=== PATIENT | female | born 1995 | race Caucasian/White ===

== ENCOUNTER 2019-11-14 21:44 | Emergency (ER) | payer OTHER, SELFPAY ==
--- NOTE | 2019-11-14 21:27 | ECG_ITS ---
APPROVED REPORT Exam: Resting ECG HR:58 bpm ECG Measurements Heart Rate 58 AXES HI 152 P 15 QRSd 112 QRS 63 QT 430 T 18 QTc 422 <Conclusion> Sinus bradycardia with marked sinus arrhythmia Abnormal ECG Electronically signed by : Hadley Marx, 11/16/2019 18:01:26
[2019-11-14 21:42] VITALS: BP 101/51; PULSE 61; RESP 18; TEMP 36.7; O2SAT 99
[2019-11-14 21:43] VITALS: BP 101/51; PULSE 61; RESP 18; TEMP 36.7; O2SAT 99; BMI 38.2
--- NOTE | 2019-11-14 21:45 | ECG_ITS ---
APPROVED REPORT Exam: Resting ECG HR:121 bpm ECG Measurements Heart Rate 121 AXES QRSd 80 QRS 56 QT 310 T -22 QTc 440 <Conclusion> Poor data quality, interpretation may be adversely affected Sinus tachycardia-motion artifact RSR' or QR pattern in V1 suggests right ventricular conduction delay ST & T wave abnormality, consider inferior ischemia Abnormal ECG Electronically signed by : Hadley Marx, 11/16/2019 18:00:03
--- NOTE | 2019-11-14 21:50 | CT_ITS ---
PROCEDURE: CT ABDOMEN PELVIS W CON CLINICAL INDICATION: nausea/vomiting abruptly Nausea and vomiting COMPARISON: No exams were available for comparison TECHNIQUE: IV Contrast: 75ML OPTIRAY 350 Oral Contrast none Axial images obtained with sagittal and coronal reformats. All CT scans at the facility use one or more dose reduction, viz: automated exposure control, ma/kV adjustment per patient size (including targeted exams where dose is matched to indication, i.e. head), or iterative reconstruction technique. FINDINGS: LOWER THORAX: Mild atelectatic changes in the lung bases. Partially calcified nodules present in the left lower lobe medially ABDOMEN & PELVIS: The liver, gallbladder, spleen, adrenal glands, pancreas, and kidneys have an unremarkable appearance. No intestinal obstruction or free air. No evidence of appendicitis or diverticulitis. There is a small amount of fluid in the cul-de-sac. There is an exophytic soft tissue mass projecting off the anterior and right aspect of the lower uterine segment consistent with a fibroid measuring 3 cm. IMPRESSION: 1. No acute finding. 2. Uterine fibroid. Ultrasound Dictated by: Reg Mead MD 11/15/2019 09:04 Electronically signed by Reg Mead MD in [place] 11/15/2019 09:04
[2019-11-14 22:00] VITALS: BP 116/70; BP 119/73; BP 130/85; PULSE 57; PULSE 73; PULSE 74
[2019-11-14 22:00] LABS: Basophils # 0.1 K/mm3 (0-0.2); Basophils % 0.9 % (0.1-2.0); Eosinophils # 0.2 K/mm3 (0.0-0.4); Eosinophils % 3.3 % (0.1-12.0); Hematocrit 42.2 % (37.0-47.0); Hemoglobin 13.2 g/dL (12.2-16.2); Lymphocytes # 1.9 K/mm3 (0.7-4.5); Lymphocytes % 29.4 % (10-50); Mean Corpuscular HGB Conc 31.4 g/dL (31.8-35.4); Mean Corpuscular Volume 82.8 fl (81-99); Mean Platelet Volume 8.1 fl (7.4-10.4); Monocytes # 0.3 K/mm3 (0.1-1.0); Monocytes % 4.3 % (1.7-9.3); Neutrophils # 3.9 K/mm3 (1.8-7.8); Neutrophils % 62.1 % (37.0-80.0); Platelet Count 380 K/mm3 (142-424); Red Cell Distribution Width 14.4 % (11.5-17.5); White Blood Count 6.4 K/mm3 (4.8-10.8)
[2019-11-14 22:02] LABS: Chloride 103 mmol/L (98-107)
[2019-11-14 22:03] LABS: Potassium 3.8 mmoL/L (3.5-5.1); Sodium 139 mmol/L (136-145)
[2019-11-14 22:05] LABS: Alanine Aminotransferase 23 U/L (12-78); Amylase 90 U/L (30-110); Aspartate Amino Transferase 29 U/L (14-36); Blood Urea Nitrogen 16 mg/dl (7-17); Creatinine Clearance Estimated 166 mL/min (50-200); Estimated Glomerular Filt Rate 87 ml/min (>60); GFR (African American) 106 ML/MIN (>60)
[2019-11-14 22:06] LABS: Albumin Level 4.3 g/dl (3.5-5.0); Albumin/Globulin Ratio 1.4 (1.1-1.8); Alkaline Phosphatase 86 U/L (38-126); Anion Gap 13.8 mEq/L (5-15); Bilirubin,Total 0.3 mg/dl (0.2-1.3); Calcium 9.5 mg/dl (8.4-10.2); Carbon Dioxide 26 mmol/L (22.0-30.0); Globulin 3.1 g/dL (1.3-3.2); Glucose 108 mg/dl (74-100); Lipase 103 U/L (23-300); Total Protein,Serum 7.4 g/dl (6.3-8.2)
[2019-11-14 22:30] VITALS: BP 119/84; PULSE 64; RESP 18; O2SAT 98
[2019-11-14 22:45] LABS: HCG Qualitative, Serum Negative (Negative)
[2019-11-14 23:00] VITALS: BP 132/84; PULSE 59; RESP 18; O2SAT 98
--- NOTE | 2019-11-14 23:27 | PC.NURSE ---
with pt consent this nurse updated the pts father on pts condition and that we were just waiting on the CT results.
--- NOTE | 2019-11-14 23:52 | PC.NURSE ---
pt up to bathroom with minimal assist x2. urine specimen obtained
--- NOTE | 2019-11-14 23:55 | HMH.EDNVD ---
ED Disposition Clinical Impression: Abdominal pain Qualifiers: Abdominal location: epigastric Qualified Code(s): R10.13 - Epigastric pain Disposition: Home, Self-Care Condition on Discharge: Good Instructions: DI for Nausea -- Adult Additional Instructions: call pcp for follow up Referrals: Provider,Referral, [Primary Care Provider] - - Critical Care Critical Care Time: No Attestation: On 11/14/19, the high probability of a clinically significant, sudden or life threatening deterioration of the following system(s) required my full and direct attention, intervention and personal management. The time I documented below is in addition to time spent performing reported procedures but includes the following listed in this critical care notation. Medical Decision Making - Medical Records Medical records reviewed: Yes: I reviewed the patient's medical records. - Sb Inquiry Pt receiving controlled substance: No Vital Signs: 11/14/19 21:42 11/14/19 21:43 11/14/19 22:00 Temperature 98.1 F 98.1 F Temperature Source Oral Oral Pulse Rate [Orthostatic Lying Right Radial] 57 L Pulse Rate [Orthostatic Sitting Right Radial] 74 Pulse Rate [Orthostatic Standing Right Radial] 73 Pulse Rate [Right Brachial] 61 61 Respiratory Rate 18 18 Blood Pressure [Orthostatic Lying Right Arm] 130/85 Blood Pressure [Orthostatic Sitting Right Arm] 119/73 Blood Pressure [Orthostatic Standing Right Arm] 116/70 Blood Pressure [Right Arm] 101/51 L 101/51 L Blood Pressure Mean [Right Arm] 67 67 Blood Pressure Source [Right Arm] Automatic Cuff Automatic Cuff Blood Pressure Position [Right Arm] Supine Sitting 02 Sat by Pulse Oximetry 99 99 Oxygen Delivery Method Room Air Room Air 11/14/19 22:30 11/14/19 23:00 Temperature Temperature Source Pulse Rate [Orthostatic Lying Right Radial] Pulse Rate [Orthostatic Sitting Right Radial] Pulse Rate [Orthostatic Standing Right Radial] Pulse Rate [Right Brachial] 64 59 L Respiratory Rate 18 18 Blood Pressure [Orthostatic Lying Right Arm] Blood Pressure [Orthostatic Sitting Right Arm] Blood Pressure [Orthostatic Standing Right Arm] Blood Pressure [Right Arm] 119/84 132/84 Blood Pressure Mean [Right Arm] 95 100 Blood Pressure Source [Right Arm] Automatic Cuff Automatic Cuff Blood Pressure Position [Right Arm] Supine Supine 02 Sat by Pulse Oximetry 98 98 Oxygen Delivery Method Room Air Room Air - Lab Data Lab results reviewed: Yes: I reviewed the patient's lab results. Lab Results 11/14/19 21:40: WBC 6.4, RBC 5.10, Hgb 13.2, Hct 42.2, MCV 82.8, MCH 26.0 L, MCHC 31.4 L, RDW 14.4, Plt Count 380, MPV 8.1, Neut % (Auto) 62.1, Lymph % (Auto) 29.4, Elliott % (Auto) 4.3, Eos % (Auto) 3.3, Baso % (Auto) 0.9, Neut # (Auto) 3.9, Lymph # (Auto) 1.9, Elliott # (Auto) 0.3, Eos # (Auto) 0.2, Baso # (Auto) 0.1 11/14/19 21:40: Sodium 139, Potassium 3.8, Chloride 103, Carbon Dioxide 26, Anion Gap 13.8, BUN 16, Creatinine 0.80, Estimated Creat Clear 166, Estimated GFR 87, Est GFR ( Amer) 106, Glucose 108 H, Calcium 9.5, Total Bilirubin 0.3, AST 29, ALT 23, Alkaline Phosphatase 86, Total Protein 7.4, Albumin 4.3, Globulin 3.1, Albumin/Globulin Ratio 1.4, Amylase 90, Lipase 103 11/14/19 21:40: Serum HCG, Qual Negative 11/15/19 00:01: Urine Color Yellow, Urine Appearance Clear, Urine pH 6.0, Ur Specific Fries 1.015, Urine Protein Negative, Urine Glucose (UA) Negative, Urine Ketones Negative, Urine Blood Negative, Urine Nitrate Negative, Urine Bilirubin Negative, Urine Urobilinogen 0.2, Ur Leukocyte Esterase Negative Result diagrams: 11/14/19 21:40 11/14/19 21:40 Orders (Tests/Meds): ED MEDICATIONS Generic Name Dose Route Start Last Admin Trade Name Freq PRN Reason Stop Dose Admin Sodium Chloride 1,000 mls @ 999 mls/hr 11/14/19 22:00 11/14/19 21:58 Sod Chlor 0.9% 1000ml Bag IV 11/14/19 23:00 999 mls/hr .Q1H1M NORA Administration Discontinued Medications
--- NOTE | 2019-11-15 | PC.NURSE ---
pt ambulated back to room approx 30 feet from bathroom with one assist.
[2019-11-15 00:08] LABS: Microscopic, Urine URINE MICROSCOPIC (MICROSCOPIC)
[2019-11-15 00:13] LABS: Appearance,Urine CLEAR (Clear); Bilirubin,Urine Negative (Negative); Blood, Urine Negative (Negative); Color,Urine YELLOW (Yellow); Glucose,Urine (UA) Negative (Negative); Ketones,Urine Negative (Negative); Leukocyte Esterase,Urine Negative (Negative); Nitrate,Urine Negative (Negative); Protein,Urine Negative (Negative); Specific Gravity, Urine 1.015 (1.005-1.030); Urobilinogen,Urine 0.2 EU/dl (0.2)
[2019-11-15 00:30] LABS: Bacteria,Urine Trace /lpf; WBC,Urine Occasional #/hpf (0-3)
[2019-11-15 01:28] VITALS: BP 135/75; PULSE 72; RESP 19; TEMP 36.8; O2SAT 98
== END 2019-11-15 01:29 | disposition home or self-care (01) ==
PROVIDERS: Emergency Provider Emergency Medicine
DX: R10.13 Epigastric pain (principal); F41.8 Other specified anxiety disorders
CPT/HCPCS: 74177; 80053; 81001; 82150; 83690; 84703; 85025; 93005; 96365; 96366; 99284; Q9967

== ENCOUNTER 2024-02-28 08:43 | Emergency (ER) | payer OTHER, SELFPAY ==
[2024-02-28 09:00] VITALS: BP 132/73; PULSE 73; RESP 20; TEMP 37; O2SAT 100; BMI 40.9
--- NOTE | 2024-02-28 09:18 | EXP.UTC ---
Discharge Plan Disposition Patient Disposition: Home, Self-Care Condition: Good Prescriptions Prescriptions: New ondansetron 4 mg tablet,disintegrating 4 mg PO Q8H PRN (Reason: nausea and vomiting) Qty: 10 0RF No Action meclizine 25 mg Tablet 25 mg PO DAILY PRN (Reason: Dizziness Or Vertigo) triamterene 100 mg Capsule 100 mg PO DAILY Referrals Follow up/Referrals: Provider,Referral, MD [Primary Care Provider] - See instructions Activity Restrictions/Add. Instructions Additional Instructions/Restrictions: Drink extra fluids with and between meals. If you have difficulty drinking, try very small amounts of water or suck on ice chips. ? Avoid fruit juices, as these do not replace minerals and can actually increase diarrhea. ? Children and adults can use sports drinks to replenish electrolytes. Younger children and infants should use products formulated for children, like oral rehydration solutions. ? Eat food in small amounts and let your stomach recover. ? Get lots of rest. You may feel tired or weak. ? No greasy or fried foods for the next 24-48 hours BRAT diet Bananas Rice Apples and Phelan ? Make sure to drink plenty of liquids ? Return if needed ? Straight to ER if any life threatening symptoms ? Zofran as prescribed ? You was given an outpatient order for diarrhea panel, please collect specimen and bring back to outpatient lab then call back to the [facility] or follow up with family doctor for results ? Follow up with family doctor in the next 48-72 hours if no improvement or any worsening of symptoms Clinical Impressions Clinical Impression: Nausea vomiting and diarrhea Stand Alone Forms Stand Alone Forms: Work/School Release Instructions Patient Instructions: Nausea and Vomiting-Adult, Diarrhea, Ondansetron Print Language Print Language: Barbadian Discharge ED Provider: Cheryl Mehta [facility] HPI General Stated complaint: abd pain, vomiting Mode of Arrival: Ambulatory Source of Information: Patient Limitations: No Limitations Time Seen by Provider: 07/30/24 09:18 Description of Symptoms (Recalled from Triage Doc. by RN): PATIENT C/O VOMITING AND DIARRHEA THAT STARTED THIS MORNING HEENT Symptoms (Recalled from RN notes): No Resp Symptoms (Recalled from RN notes): No Skin Symptoms (Recalled from RN notes): No MS Symptoms (Recalled from RN notes): No Functional Status (Recalled from RN notes): WNL History of Present Illness Provider Complaint: Patient states that she started with Vomiting and diarrhea about 3am this morning States that she has been trying to drink and stay hydrated but needed to come in and get something to help with the nausea Related Data Home Medications ?Medication ?Instructions ?Recorded ?Confirmed meclizine 25 mg tablet 25 mg PO DAILY PRN Dizziness Or 02/28/24 02/28/24 Vertigo triamterene 100 mg capsule 100 mg PO DAILY 02/28/24 02/28/24 Previous Rx's ?Medication ?Instructions ?Recorded ondansetron 4 mg disintegrating 4 mg PO Q8H PRN nausea and 02/28/24 tablet vomiting #10 tabs Allergies Allergy/AdvReac Type Severity Reaction Status Date / Time pseudoephedrine Allergy Verified 01/03/20 09:03 [From Sudafed] Penicillin G Procaine Allergy Unknown Uncoded 01/03/20 09:03 Worker's Comp Is this a Worker's Comp case?: No [facility] Disclaimer: The information contained in this section may have been updated after the patient was seen, as this information can be updated by other users. Medical History (Updated 02/28/24 @ 09:25 by Cheryl Mehta APRN) Depression Anxiety Meniere disease Social History Smoking Status: Never smoker alcohol intake: current alcohol intake frequency: a few times a month substance use type: denies use current occupational status: other Travel in the last 8 weeks: None number of children: 0 ROS Obtained: Yes All systems reviewed & no additional complaints except as documented and Yes Systems reviewed as appropriate & no additional complaints except as documented Constitutional Constitutional: Reports system reviewed and no additional complaints, except as documented, Reports as per HPI, Denies body ache, Denies chills, Denies fever(s) and Denies headache(s) ENT Ears, Nose, Mouth, and Throat: Reports system reviewed and no additional complaints, except as documented, Reports as per HPI and Denies headache(s) Cardiovascular Cardiovascular: Reports system reviewed and no additional complaints, except as documented and Reports as per HPI Respiratory Respiratory: Reports system reviewed and no additional complaints, except as documented and Reports as per HPI Gastrointestinal Gastrointestingal: Reports system reviewed and no additional complaints, except as documented, as per HPI, cramping, diarrhea, nausea and vomiting Musculoskeletal Musculoskeletal: Reports system reviewed and no additional complaints, except as documented and Reports as per HPI Integumentary/Breasts Skin/Breast: Reports system reviewed and no additional complaints, except as documented and Reports as per HPI Neurologic Neurologic: Denies headache(s) Physical Exam General General appearance: alert and in no apparent distress ENT ENT exam: Present mucous membranes moist Respiratory Respiratory exam: Present normal lung sounds bilaterally; Absent respiratory distress or wheezes Cardiovascular Cardiovascular exam: Present regular rate, normal rhythm and normal heart sounds Abdominal Exam Abdominal exam: Present soft and normal bowel sounds; Absent distention, tenderness, guarding or rebound Neurological Exam Neurological exam: Present alert, oriented X3 and normal gait Medical Decision Making Sb Inquiry Pt receiving controlled substance: No Sb was queried for this patient: No Vital Signs: 02/28/24 09:00 Temperature 98.6 F Temperature Source Oral Pulse Rate [Left Brachial] 73 Respiratory Rate 20 Blood Pressure [Left Arm] 132/73 Blood Pressure Mean [Left Arm] 92 Blood Pressure Source [Left Arm] Automatic Cuff Blood Pressure Position [Left Arm] Sitting 02 Sat by Pulse Oximetry 100 Oxygen Delivery Method Room Air
[2024-02-28 09:26] VITALS: BP 132/73; PULSE 73; RESP 20; TEMP 37; O2SAT 100
== END 2024-02-28 09:29 | disposition home or self-care (01) ==
PROVIDERS: Emergency Provider Nurse Practitioner
DX: R11.2 Nausea with vomiting, unspecified (principal); R19.7 Diarrhea, unspecified
CPT/HCPCS: 99204; 99212; G0463

== ENCOUNTER 2024-03-31 12:01 | Outpatient (CLI) | payer OTHER, SELFPAY ==
--- NOTE | 2024-03-31 12:10 | XR_ITS ---
PROCEDURE INFORMATION: Exam: XR Right Knee Exam date and time: 03/31/2024 12:01 PM Age: 28 years old Clinical indication: Pain; Knee; Right TECHNIQUE: Imaging protocol: Radiologic exam of the right knee. Views: 3 views. COMPARISON: No relevant prior studies available. FINDINGS: Bones/joints: Normal. Soft tissues: Normal. IMPRESSION: No acute findings.
== END 2024-03-31 23:59 | disposition home or self-care (01) ==
PROVIDERS: PCP Internal Medicine Adolescent Medicine; Visit Provider Internal Medicine Adolescent Medicine
DX: M25.561 Pain in right knee (principal)
CPT/HCPCS: 73562

== ENCOUNTER 2024-10-10 10:20 | Emergency (ER) | payer OTHER, SELFPAY ==
[2024-10-10] VITALS (10 sets, daily range): BP systolic 86–134; BP diastolic 47–92; PULSE 68–86; RESP 13–18; TEMP 36.8–36.9; O2SAT 95–100; BMI 28.3
--- NOTE | 2024-10-10 10:28 | ECG_ITS ---
APPROVED REPORT Exam: Resting ECG HR:66 bpm ECG Measurements Heart Rate 66 AXES NM 149 P 51 QRSd 102 QRS 77 QT 382 T 56 QTc 396 Conclusion SINUS RHYTHM WITH MARKED SINUS ARRHYTHMIA INCOMPLETE RIGHT BUNDLE BRANCH BLOCK [90+ ms QRS DURATION, TERMINAL R IN V1/V2, 40+ ms S IN I/aVL/V4/V5/V6] BORDERLINE ECG No STEMI Electronically signed by : JOÃO HAQ, 10/11/2024 07:40:00
--- NOTE | 2024-10-10 10:44 | PC.NURSE ---
DR AGUILERA AT BEDSIDE
--- NOTE | 2024-10-10 10:53 | CT_ITS ---
FINAL REPORT TECHNIQUE: Axial CT images were performed through the head. Coronal and sagittal reformatted images were submitted. This study was performed with techniques to keep radiation doses as low as reasonably achievable (ALARA). Individualized dose reduction techniques using automated exposure control or adjustment of mA and/or kV according to the patient's size were employed. CLINICAL HISTORY: Presyncope, intermittent vision changes right eye COMPARISON: None FINDINGS: The ventricles are normal in size. There is no evidence of hemorrhage. There is no mass or edema identified. There is no abnormal extra-axial fluid seen. The sinuses are well aerated. IMPRESSION: No acute intracranial process. Reviewed, Interpreted and Dictated by Pepe Olson MD Transcribed by Michelle Joshua Authenticated and . [facility]
--- NOTE | 2024-10-10 10:53 | XR_ITS ---
FINAL REPORT TECHNIQUE: Single view chest CLINICAL HISTORY: Presyncope FINDINGS: A single view of the chest was obtained. The heart and mediastinum are within normal limits. There are mild chronic changes at the lung bases. The lungs are underinflated but otherwise clear. There is no pneumothorax. IMPRESSION: No acute cardiopulmonary process. Reviewed, Interpreted and Dictated by Pepe Olson MD Transcribed by Radha Myers Authenticated and [facility]
--- NOTE | 2024-10-10 10:53 | CT_ITS ---
FINAL REPORT TECHNIQUE: thin section axial CT with and without IV contrast supplemented with multiplanar 3-D reconstruction of the head. This study was performed with techniques to keep radiation doses as low as reasonably achievable, (ALARA)individualized dose reduction techniques using automated exposure control or adjustment of mA and/or kV according to the patient's size were employed. CLINICAL HISTORY: Presyncope, intermittent vision changes right eye COMPARISON: None FINDINGS: HEAD CT: The ventricles are normal in size. There is no evidence of hemorrhage. No masses are identified. No extra-axial fluid is seen. The sinuses are normal. CTA: The cranial circulation is unremarkable. There is no significant stenosis, aneurysm or occlusion. IMPRESSION: No acute process. Reviewed, Interpreted and Dictated by Pepe Olson MD Transcribed by Michelle Joshua Authenticated and [facility]
--- NOTE | 2024-10-10 10:53 | CT_ITS ---
FINAL REPORT TECHNIQUE: NASCET technique utilized for stenosis evaluation. CLINICAL HISTORY: Presyncope, intermittent vision changes right eye COMPARISON: None FINDINGS: RIGHT CAROTID: No significant stenosis is seen of the cervical common or internal carotid artery. LEFT CAROTID: No significant stenosis seen of the cervical common or internal carotid artery. VERTEBRALS: The vertebrals are patent. No significant stenosis is present. IMPRESSION: No significant arterial abnormality. Reviewed, Interpreted and Dictated by Pepe Olson MD Transcribed by Michelle Joshua Authenticated and [facility]
--- NOTE | 2024-10-10 10:55 | ED_ITS ---
Discharge Plan Disposition Patient Disposition: Home, Self-Care Condition: Good Prescriptions Prescriptions: No Action meclizine 25 mg Tablet 25 mg PO DAILY PRN (Reason: Dizziness Or Vertigo) triamterene 100 mg Capsule 100 mg PO DAILY ondansetron 4 mg tablet,disintegrating 4 mg PO Q8H PRN (Reason: nausea and vomiting) Qty: 10 0RF Referrals Follow up/Referrals: Salbador Seth MD [Primary Care Provider] - See instructions Activity Restrictions/Add. Instructions Additional Instructions/Restrictions: Follow-up with your primary care physician if your headaches continue. Avoid prolonged screen time. You can take Tylenol and ibuprofen if headaches occur. If you develop any new or worsening symptoms, or if you become concerned for your health for any reason, return to the emergency department for evaluation. Clinical Impressions Clinical Impression: Headache, Change in vision, Pre-syncope Stand Alone Forms Stand Alone Forms: Work/School Release Print Language Print Language: Tuvaluan Discharge ED Provider: Juan Boo General Adult HPI General Chief complaint: Weakness Stated complaint: dizziness, confusion, almost passed out Time Seen by Provider: 10/10/24 10:44 Mode of Arrival: Wheelchair Source of Information: Patient Description of Symptoms (Recalled from ER Triage Doc. by RN): pt presents to ED with c/o blind spot in vision yesterday while at work. pt reports that it supsided. pt reports that she had confusion, lethargy ongoing for approx an hour this morning but went away. pt does have history of menieres disease. History of Present Illness HPI narrative: Destiny White is a 28F with a past medical history of syncope as a teenager, anxiety, Meniere disease who presents to the emergency department for complaints of a presyncopal episode. Patient states that yesterday while working, she was sitting in front of a computer at approximately 2:00 in the afternoon and had a black spot appear in the mid upper part of her vision in her right eye. It made it somewhat difficult to read. It self resolved after an hour or so. She did well throughout the night and then this morning, she had recurrence of the black spot in her right eye and she took a shower and felt like she got tunnel vision in both eyes and nearly passed out. She states that she did not fully pass out and was able to walk afterwards and feels back to her baseline currently. She has no vision symptoms at this time. She does report that she has had a headache over the past several days but denies any known history of migraine headaches. She denies any focal weakness or numbness. She denies any history of clotting disorders or strokes. She denies any history of diabetes. She denies any preceding chest pain, palpitations, shortness of breath, abdominal pain, nausea or vomiting. She states that last week she had a GI illness that lasted a couple days but had resolved. Related Data Home Medications ?Medication ?Instructions ?Recorded ?Confirmed meclizine 25 mg tablet 25 mg PO DAILY PRN Dizziness Or 02/28/24 02/28/24 Vertigo triamterene 100 mg capsule 100 mg PO DAILY 02/28/24 02/28/24 Previous Rx's ?Medication ?Instructions ?Recorded ondansetron 4 mg disintegrating 4 mg PO Q8H PRN nausea and 02/28/24 tablet vomiting #10 tabs Allergies Allergy/AdvReac Type Severity Reaction Status Date / Time pseudoephedrine (From Allergy Verified 01/03/20 09:03 [facility]) Penicillin G Procaine Allergy Unknown Uncoded 01/03/20 09:03 [facility] Disclaimer: The information contained in this section may have been updated after the patient was seen, as this information can be updated by other users. Medical History (Updated 10/10/24 @ 12:28 by Juan Boo MD) Depression Anxiety Meniere disease Social History Smoking Status: Never smoker alcohol intake: current alcohol intake frequency: a few times a month substance use type: denies use current occupational status: other Travel in the last 8 weeks: None number of children: 0 Have you lived/traveled outside [place] in past 30 days?: No Contact w/someone who lives/traveled outside US past 30 days?: No Exposure to someone with infectious disease in past 14 days?: No Do you have a fever (greater than 100.4 F or 38 C)?: No Have you tested positive for COVID-19: No Exposed to someone with COVID-19 in past 14 days?: No Do you have a sore throat?: No Do you have a cough?: No Do you have any weakness?: No Do you have any diarrhea?: No Are you experiencing any unusual bleeding?: No Do you have any muscle aches/pain?: No Do you have any abdominal pain?: No Are you experiencing loss of taste or smell?: No Other Medical History Have you received the Flu Vaccine for this season: No Have you received the Pneumonia Vaccine: No ROS Obtained: Yes Systems reviewed as appropriate & no additional complaints except as documented Physical Exam General General appearance: alert and in no apparent distress Head Head exam: atraumatic Eye Eye exam: Present normal appearance ENT ENT exam: Present normal external ear exam Neck Neck exam: Present full ROM Chest Chest inspection: Present symmetric chest wall rise Respiratory Respiratory exam: Present normal lung sounds bilaterally; Absent respiratory distress Cardiovascular Cardiovascular exam: Present regular rate and normal rhythm Abdominal Exam Abdominal exam: Present soft; Absent tenderness or guarding Extremities Exam Extremities exam: Present normal inspection Back Exam Back exam: Present normal inspection Neurological Exam Neurological exam: Present alert, oriented X3, CN II-XII intact, normal gait and other (NIH of 0); Absent motor sensory deficit or reflexes normal Psychiatric Psychiatric exam: Present normal affect Skin Skin exam: Present warm and dry Medical Decision Making Medical Records Screening: Per USPSTF and CDC recommendations, given the prevalence of disease in our region, it is our hospital?s policy to screen for HIV and viral Hepatitis for all patients aged 18 and over and those with ongoing risk factors. Sb Inquiry Pt receiving controlled substance: No Vital Signs: 10/10/24 10:27 10/10/24 10:45 10/10/24 11:01 Temperature 98.4 F Temperature Source Oral Pulse Rate 72 71 Pulse Rate [Left Radial] 73 Pulse Rate [Orthostatic Lying Left] Pulse Rate [Orthostatic Sitting Left] Pulse Rate [Orthostatic Standing Left] Respiratory Rate 13 16 Blood Pressure 126/75 86/47 L Blood Pressure [Orthostatic Lying Left Arm] Blood Pressure [Orthostatic Sitting Left Arm] Blood Pressure [Orthostatic Standing Left Arm] Blood Pressure [Right Arm] 126/75 Blood Pressure Mean 60 Blood Pressure Mean [Right Arm] 92 Blood Pressure Source Blood Pressure Source [Right Arm] Automatic Cuff Blood Pressure Position Blood Pressure Position [Right Arm] Supine 02 Sat by Pulse Oximetry 98 98 95 Oxygen Delivery Method Room Air Room Air 10/10/24 11:08 10/10/24 11:27 10/10/24 11:31 Temperature Temperature Source Pulse Rate 71 82 Pulse Rate [Left Radial] Pulse Rate [Orthostatic Lying Left] 76 Pulse Rate [Orthostatic Sitting Left] 75 Pulse Rate [Orthostatic Standing Left] 68 Respiratory Rate 13 18 Blood Pressure 128/81 119/81 Blood Pressure [Orthostatic Lying Left Arm] 109/77 L Blood Pressure [Orthostatic Sitting Left Arm] 127/84 Blood Pressure [Orthostatic Standing Left Arm] 132/92 H Blood Pressure [Right Arm] Blood Pressure Mean Blood Pressure Mean [Right Arm] Blood Pressure Source Blood Pressure Source [Right Arm] Blood Pressure Position Blood Pressure Position [Right Arm] 02 Sat by Pulse Oximetry 97 97 Oxygen Delivery Method 10/10/24 11:52 10/10/24 11:53 10/10/24 11:55 Temperature Temperature Source Pulse Rate 79 86 Pulse Rate [Left Radial] Pulse Rate [Orthostatic Lying Left] Pulse Rate [Orthostatic Sitting Left] Pulse Rate [Orthostatic Standing Left] Respiratory Rate 13 17 13 Blood Pressure 109/77 L 127/84 132/92 H Blood Pressure [Orthostatic Lying Left Arm] Blood Pressure [Orthostatic Sitting Left Arm] Blood Pressure [Orthostatic Standing Left Arm] Blood Pressure [Right Arm] Blood Pressure Mean Blood Pressure Mean [Right Arm] Blood Pressure Source Blood Pressure Source [Right Arm] Blood Pressure Position Blood Pressure Position [Right Arm] 02 Sat by Pulse Oximetry 100 98 Oxygen Delivery Method 10/10/24 12:35 Temperature 98.2 F Temperature Source Oral Pulse Rate 76 Pulse Rate [Left Radial] Pulse Rate [Orthostatic Lying Left] Pulse Rate [Orthostatic Sitting Left] Pulse Rate [Orthostatic Standing Left] Respiratory Rate 18 Blood Pressure 134/90 Blood Pressure [Orthostatic Lying Left Arm] Blood Pressure [Orthostatic Sitting Left Arm] Blood Pressure [Orthostatic Standing Left Arm] Blood Pressure [Right Arm] Blood Pressure Mean Blood Pressure Mean [Right Arm] Blood Pressure Source Automatic Cuff Blood Pressure Source [Right Arm] Blood Pressure Position Sitting Blood Pressure Position [Right Arm] 02 Sat by Pulse Oximetry Oxygen Delivery Method Room Air Lab Data Lab Results 10/10/24 10:39: WBC 5.8, RBC 4.67, Hgb 11.1 L, Hct 36.6 L, MCV 78.4 L, MCH 23.8 L, MCHC 30.3 L, RDW 17.5, Plt Count 333, MPV 10.6 H, Neut % (Auto) 51.9, Lymph % (Auto) 35.5, [place] % (Auto) 6.2, Eos % (Auto) 5.0, Baso % (Auto) 1.2, Neut # (Auto) 3.0, Lymph # (Auto) 2.1, [place] # (Auto) 0.4, Eos # (Auto) 0.3, Baso # (Auto) 0.1, Sodium 137, Potassium 4.1, Chloride 109 H, Carbon Dioxide 24, Anion Gap 8.1, BUN 10, Creatinine 0.80, Estimated Creat Clear 118, Estimated GFR 84, Est GFR ( Amer) 102, Glucose 103 H, Calcium 9.3, Magnesium 2.1, Total Bilirubin 0.4, AST 29, ALT 17, Alkaline Phosphatase 70, Troponin I < 0.01, Total Protein 6.5, Albumin 3.7, Globulin 2.8, Albumin/Globulin Ratio 1.3, Serum HCG, Qual Negative, HCV Ab MARISOL w/Rflx PCR Qn Negative, HIV Ag/Ab Combo Qual Negative 10/10/24 10:39 10/10/24 10:39 Orders (Tests/Meds): ED MEDICATIONS Discontinued Medications Generic Name Dose Route Start Last Admin Trade Name Freq PRN Reason Stop Dose Admin Lactated Ringer's 1,000 mls @ 999 mls/hr 10/10/24 11:08 10/10/24 11:16 Lactated Ringer's 1000 Ml Bag IV 10/10/24 12:08 999 mls/hr .Q1H1M ONE Administration Iopamidol 80 ml 10/10/24 11:13 10/10/24 11:14 Iopamidol-370 (76%);100ml Bottle IV 10/10/24 11:14 80 ml ONCE ONE Administration Ketorolac Tromethamine 30 mg 10/10/24 10:53 10/10/24 11:01 Ketorolac 30mg/Ml Vial IV 10/10/24 10:54 30 mg ONCE ONE Administration Sodium Chloride 50 ml 10/10/24 11:13 10/10/24 11:14 0.9 % Sodium Chloride 50 Ml Vial IV 10/10/24 11:14 50 ml ONCE ONE Administration Sodium Chloride 10 ml 10/10/24 11:13 10/10/24 11:14 Sodium Chloride 0.9% 10ml Syr (Rad Only) IV 11/09/24 11:12 10 ml NEEDED PRN Administration Maintain IV Site ORDERS Category Date Time Status CT angio head Stat Cat Scan 10/10/24 10:[address] angio neck Stat Cat Scan 10/10/24 10:[address] head/brain wo con Stat Cat Scan 10/10/24 10:53 Completed XR chest AP Stat Exams 10/10/24 10:53 Completed CBC w/Auto Diff [Complete Blood Count Auto Diff] Stat Lab 10/10/24 10:39 Completed CMP [Comprehensive Metabolic Panel] Stat Lab 10/10/24 10:39 Completed HIV Combo Stat Lab 10/10/24 10:39 Completed Hepatitis C Ab Qual. W/ RFX Stat Lab 10/10/24 10:39 Completed Magnesium Stat Lab 10/10/24 10:39 Completed Serum [HCG Qualitative, Serum] Stat Lab 10/10/24 10:39 Completed Troponin I Stat Lab 10/10/24 10:39 Completed ECG Data Tracing #1: I reviewed this ECG and interpreted as documented below: EKG demonstrated normal sinus rhythm with sinus arrhythmia. Ventricular rate of [address] elevations or depressions. No prolonged QTc with QTc of 396. AR interval normal at 149. Medical Decision Narrative: Destiny White is a 28F with a past medical history of syncope as a teenager, anxiety, Meniere disease who presents to the emergency department for complaints of a presyncopal episode. Patient states that yesterday while working, she was sitting in front of a computer at approximately 2:00 in the afternoon and had a black spot appear in the mid upper part of her vision in her right eye. It made it somewhat difficult to read. It self resolved after an hour or so. She did well throughout the night and then this morning, she had recurrence of the black spot in her right eye and she took a shower and felt like she got tunnel vision in both eyes and nearly passed out. She states that she did not fully pass out and was able to walk afterwards and feels back to her baseline currently. She has no vision symptoms at this time. She does report that she has had a headache over the past several days but denies any known history of migraine headaches. She denies any focal weakness or numbness. She denies any history of clotting disorders or strokes. She denies any history of diabetes. She denies any preceding chest pain, palpitations, shortness of breath, abdominal pain, nausea or vomiting. She states that last week she had a GI illness that lasted a couple days but had resolved. On arrival, patient is normotensive, heart rate within normal limits, breathing comfortably on room air in no acute distress. Afebrile. Physical exam, stated above, revealed an overall well- appearing female in no distress. Cranial nerves II through XII are intact. Her neurological exam is otherwise nonfocal with an NIH of 0. Cardiopulmonary exam is unremarkable with no murmurs, wheezing or rhonchi. Differential diagnosis includes, but is not limited to: Complicated migraine, CRVO, CRAO, cardiac arrhythmia, electrolyte derangement, vasovagal syncope, orthostatic hypotension, dehydration, anemia, among others. Workup in the emergency department included: Troponin, CMP, CBC with differential, serum test, troponin, EKG, chest x-ray. Patient does not have significant risk factors, however stroke is considered given patient's constellation of symptoms. Will obtain CTA of the head and neck as well as CT head without contrast to evaluate further. Patient symptoms were treated with 15 mg of IV Toradol Patient was also given 1 L of lactated ringer after orthostatic vital signs were obtained. Chest x-ray interpreted by me personally and demonstrated no focal consolidations, no pneumothorax, no pulmonary effusion, no widening of the mediastinum and no pneumomediastinum. See radiology report for details CTA of the head and neck as well as CT head interpreted by me personally. No large vessel occlusion, no significant stenosis, no intracranial hemorrhage or masses appreciated. See radiology report for final details Laboratory studies were grossly unremarkable nonactionable. No leukocytosis. Mild anemia of 11.1 and hematocrit of 36.3 but unlikely to be low enough to be causing her symptoms. Electrolytes within normal limits and no ALEXANDRA. Initial troponin less than 0.01. Negative test. Orthostatic vitals without significant blood pressure changes or heart rate changes. On reassessment, patient reported significant improvement in her headache and did not have recurrence of her vision changes. Her workup today is grossly unremarkable for any acute pathology. Given her headache and vision changes associated with when she had a headache, is possible that she has complicated migraines with aura that can be exacerbated by her prolonged screen time, which she says happens because she has 2 jobs and both require her to spend prolonged time in front of the screen. She was instructed to avoid prolonged screen time and to take Tylenol and ibuprofen whenever headaches occur. She is also instructed to follow-up with her primary care physician if her headaches continue. Return precautions were given. All questions were answered. She demonstrated understanding and was in agreement with this plan. She was then discharged from the emergency department in stable condition. Critical Care Critical Care Time Critical Care Time: No
[2024-10-10] MEDS: KETOROLAC 30MG/ML VIAL 30 MG IV (11:01)
[2024-10-10 11:03] LABS: Albumin Level 3.7 g/dl (3.5-5.0); Chloride 109 mmol/L (98-107); HCG Qualitative, Serum Negative (Negative); Potassium 4.1 mmoL/L (3.5-5.1); Sodium 137 mmol/L (136-145)
[2024-10-10 11:04] LABS: Basophils # 0.1 K/mm3 (0-0.2); Basophils % 1.2 % (0.1-2.0); Eosinophils # 0.3 K/mm3 (0.0-0.4); Hematocrit 36.6 % (37.0-47.0); Hemoglobin 11.1 g/dL (12.2-16.2); Lymphocytes # 2.1 K/mm3 (0.7-4.5); Lymphocytes % 35.5 % (10-50); Mean Corpuscular HGB Conc 30.3 g/dL (31.8-35.4); Mean Corpuscular Hemoglobin 23.8 pg (27.0-31.2); Mean Corpuscular Volume 78.4 fl (81-99); Mean Platelet Volume 10.6 fl (7.4-10.4); Monocytes # 0.4 K/mm3 (0.1-1.0); Monocytes % 6.2 % (1.7-9.3); Neutrophils % 51.9 % (37.0-80.0); Platelet Count 333 K/mm3 (142-424); Red Blood Count 4.67 M/mm3 (4.20-5.40); Red Cell Distribution Width 17.5 % (11.5-17.5); White Blood Count 5.8 K/mm3 (4.8-10.8)
[2024-10-10 11:06] LABS: Alanine Aminotransferase 17 U/L (12-78); Albumin/Globulin Ratio 1.3 (1.1-1.8); Alkaline Phosphatase 70 U/L (38-126); Anion Gap 8.1 mEq/L (5-15); Aspartate Amino Transferase 29 U/L (14-36); Bilirubin,Total 0.4 mg/dl (0.2-1.3); Blood Urea Nitrogen 10 mg/dl (7-17); Calcium 9.3 mg/dl (8.4-10.2); Carbon Dioxide 24 mmol/L (22.0-30.0); Creatinine Clearance Estimated 118 mL/min (50-200); Estimated Glomerular Filt Rate 84 ml/min (>60); GFR (African American) 102 ML/MIN (>60); Globulin 2.8 g/dL (1.3-3.2); Glucose 103 mg/dl (74-100); Magnesium 2.1 mg/dl (1.6-2.3); Total Protein,Serum 6.5 g/dl (6.3-8.2)
--- NOTE | 2024-10-10 11:09 | PC.NURSE ---
PT TO CT
[2024-10-10] MEDS: IOPAMIDOL-370 (76%);100ML BOTTLE 80 ML IV (11:14)
[2024-10-10] MEDS: SODIUM CHLORIDE 0.9% 10ML SYR (RAD ONLY) 10 ML IV (11:14)
[2024-10-10] MEDS: 0.9 % SODIUM CHLORIDE 50 ML VIAL IV (11:14)
[2024-10-10] MEDS: LACTATED RINGERS 1000ML 1,000 ML 999 ML IV (11:16)
--- NOTE | 2024-10-10 11:18 | PC.NURSE ---
PT RETURNED FROM CT
[2024-10-10 11:55] LABS: Troponin I < 0.01 ng/ml (0.00-0.034)
--- NOTE | 2024-10-10 11:58 | PC.NURSE ---
Orthostatics: Laying- BP:109/77 Heart Rate:76 Sitting- BP:127/84 Heart Rate:75 Standing- BP:132/92 Heart Rate: 68
[2024-10-10 12:21] LABS: HIV Combo NEGATIVE (Negative)
[2024-10-10 12:29] LABS: Hepatitis C Ab Qual. W/ RFX NEGATIVE (Negative)
== END 2024-10-10 12:39 | disposition home or self-care (01) ==
PROVIDERS: Emergency Provider Student in an Organized Health Care Education/Training Program; PCP Internal Medicine Adolescent Medicine
DX: R55 Syncope and collapse (principal); R51.9 Headache, unspecified; H53.9 Unspecified visual disturbance; R42 Dizziness and giddiness
CPT/HCPCS: 70450; 70496; 70498; 71045; 80053; 83735; 84484; 84703; 85025; 86803; 87389; 93005; 96361; 96374; 99285; J1885; J7120; Q9967